=== PATIENT | female | born 1990 | race Caucasian/White ===

== ENCOUNTER 2016-10-21 06:10 | Inpatient (IN) | payer OTHER ==
[2016-10-21] MEDS ORDERED: CITRIC ACID/SODIUM CITRATE 30 ML UNIT-DOSE CUP PO ONE (07:01)
[2016-10-21] MEDS: ELECTROLYTE-148 SOLN 1,000 ML IV SCH (08:00)
[2016-10-21 08:09] VITALS: BMI 36.1
[2016-10-21] MEDS ORDERED: oxyCODONE HCL 5 MG TABLET PO PRN ×2 (08:17)
[2016-10-21] MEDS ORDERED: METHYLERGONOVINE MALEATE 0.2 MG/1 ML AMP IM PRN (08:17)
[2016-10-21] MEDS ORDERED: IBUPROFEN 800 MG/8 ML IJ IVPB PRN ×2 (08:17→09:21)
[2016-10-21] MEDS ORDERED: ONDANSETRON 4 MG/2 ML VIAL IVPB PRN (09:20)
[2016-10-21] MEDS ORDERED: morphine SULFATE/Preservative Free 0.5 MG/ML (1cc Syringe) EP ONE (09:20)
[2016-10-21] MEDS: OXYTOCIN 20 UNITS in 0.9% NS 1,000 ML IV SCH (10:15)
[2016-10-21] MEDS: FERROUS SO4 325 MG TABLET (FP) PO SCH ×2 (10:55→18:16)
[2016-10-21] MEDS ORDERED: TUBERCULIN PPD 5 TU/0.1ML SYRINGE (IN PATIENT USE ONLY) ID ONE (16:15)
--- NOTE | 2016-10-21 19:59 | OP ---
Operative Note - Note: Operative Date: 10/21/16 (dictation number [id number]) Pre-Operative Diagnosis: SIUP at 39 weeks, prior delivery, declines TOLAC Operation: repeat LTCS/ delivery Findings: normal b/l tubes and ovaries Post-Operative Diagnosis: Same as Pre-op Surgeon: Jamzín Smith Client Server Programmer: Yang Machado Anesthesiologist/PAPER MACHINE OPERATOR: Junior Johnson Anesthesia: Spinal Specimens Removed: placenta Estimated Blood Loss (mls): 700 Operative Report Dictated: Yes
--- NOTE | 2016-10-21 20:04 | HP ---
Past Medical History - Admission History of Present Illness: 25 y/o with SIUP at 39 weeks here for scheduled repeat section. Pt with h/o prior c section for arrest of dilation, pt declines TOLAC. only complicated by short time of concern for anxiety/ depression, pt did take Lexapro for a few weeks in the 2nd trimester. Hasn't taken since and mood has been stable. Pt reports +FM, no VB/LOf/Ctx. 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 History Source: Patient, Medical Record Limitations to Obtaining History: No Limitations - Past Medical History ...: 3 ...Para: 1 ...Term: 1 ...: 0 ...Spon : 0 ...Induced : 0 ...Multiple Gestation: 0 ... Weeks Gestation by Dates: 39.0 ...EDC by Sono: 10/28/16 Heme/Onc: Yes: Anemia Psych: Yes: Anxiety - Past Surgical History Past Surgical History: Yes: Hx Myomectomy: No Hx Transabdominal Cerclage: No - Smoking History Smoking history: Never smoked Have you smoked in the past 12 months: No - Alcohol/Substance Use Hx Alcohol Use: No History of Substance Use: reports: None - Social History Usual Living Arrangement: Yes: With Significant Other ADL: Independent History of Recent Travel: No Home Medications - Allergies Allergies/Adverse Reactions: Allergies Allergy/AdvReac Type Severity Reaction Status Date / Time No Known Allergies Allergy Verified 10/21/16 08:10 - Home Medications Home Medications: Ambulatory Orders Ibuprofen [Motrin -] 600 mg PO QID PRN #28 tablet 10/21/16 Oxycodone HCl/Acetaminophen [Percocet 5-325 mg Tablet -] 1 tab PO Q4H #30 tablet MDD 6 10/21/16 Vit No.130/Iron/FA [ Vitamins] 1 each PO DAILY 10/21/16 Review of Systems - Review of Systems Constitutional: reports: No Symptoms Eyes: reports: No Symptoms HENT: reports: No Symptoms Neck: reports: No Symptoms Cardiovascular: reports: No Symptoms Respiratory: reports: No Symptoms Gastrointestinal: reports: No Symptoms Genitourinary: reports: No Symptoms Breasts: reports: No Symptoms Reported Musculoskeletal: reports: No Symptoms Integumentary: reports: No Symptoms Neurological: reports: No Symptoms Endocrine: reports: No Symptoms Hematology/Lymphatic: reports: No Symptoms Psychiatric: reports: No Symptoms Physical Exam - Maternity Vital Signs: Vital Signs Temperature 99.2 F 10/21/16 17:46 Pulse Rate 93 H 10/21/16 17:46 Respiratory Rate 20 10/21/16 17:46 Blood Pressure 135/77 10/21/16 17:46 O2 Sat by Pulse Oximetry (%) 100 10/21/16 10:35 Constitutional: Yes: Well Nourished, No Distress, Calm Eyes: Yes: Conjunctiva Clear, EOM Intact HENT: Yes: Atraumatic, Normocephalic Neck: Yes: Supple, Trachea Midline Cardiovascular: Yes: Regular Rate and Rhythm Lungs: Clear to auscultation - Abdominal Exam/OB Number of Fetuses: Single Contractions: No Monitor Mode: External Category: I Accelerations: Uniform Decelerations: None - Vaginal Exam/OB Vaginal Bleediing: No Amniotic Membrane Status: Intact - Physical Exam Psychiatric: Yes: Alert, Oriented Hemorrhage Risk Assessment - Risk Factors Medium Risk Factors: Yes: Prior , uterine surgery,or multiple laparotomies High Risk Factors: Yes: None Risk Score: 1 Risk Level: Medium Risk Problem List - Problems (1) History of delivery Code(s): Z98.891 - HISTORY OF UTERINE SCAR FROM PREVIOUS SURGERY (2) Term Code(s): Z34.80 - ENCOUNTER FOR SUPRVSN OF NORMAL , UNSP TRIMESTER Assessment/Plan 25 y/o with SIUP at 39 weeks for scheduled repeat c section NPO SCDs IV Antibiotics preop nursing and anesthesia and nursery/nicu aware burkett catheter preop
[2016-10-22 08:16] LABS: BASOPHIL 0.1 % (0-2.0); EOSINOPHIL 0.2 % (0-4.5); MCH 24.6 pg (25.7-33.7); MCHC 32.8 g/dl (32.0-36.0); MEAN PLT VOLUME 8.7 fl (7.5-11.1); NEUTROPHILS 86.1 % (42.8-82.8); PLATELET COUNT 162 K/MM3 (134-434); RDW 14.8 % (11.6-15.6); WHITE BLOOD COUNT 10.4 K/mm3 (4.0-10.0)
[2016-10-22] MEDS: SIMETHICONE 80 MG TAB.CHEW (FP) PO PRN ×2 (08:17→16:00)
[2016-10-22] MEDS: IBUPROFEN 600 MG TABLET (FP) PO PRN ×3 (08:17→20:31)
[2016-10-22] MEDS ORDERED: BISACODYL 10 MG SUPP.RECT RC PRN (08:17)
[2016-10-22] MEDS: ACETAMINOPHEN 325 MG TABLET (FP) PO PRN ×3 (08:17→20:32)
[2016-10-22] MEDS: FERROUS SO4 325 MG TABLET (FP) PO SCH ×2 (08:21→17:46)
--- NOTE | 2016-10-22 09:40 | OP ---
DATE OF OPERATION: 10/21/2016 PREOPERATIVE DIAGNOSIS: Single intrauterine at 39 weeks gestation, prior section, does decline trial of labor after section. POSTOPERATIVE DIAGNOSIS: Single intrauterine at 39 weeks gestation, prior section, does decline trial of labor after section. PROCEDURE: Repeat low transverse section. SURGEON: Jazmín Smith DO AUTO DAMAGE ESTIMATOR: Divya Machado MD ESTIMATED BLOOD LOSS: 700 mL COMPLICATIONS: None. SPECIMENS REMOVED: Included placenta. COUNTS: Sponge, needle, and instrument count correct. ANESTHESIA: Spinal by Junior Johnson MD. BRIEF HISTORY AND DESCRIPTION OF PROCEDURE: Patient is a 25-year-old G3, P 1-0- 1-1 female with a single intrauterine at 39 weeks gestation. Patient had a prior history of section in the past and declined trial of labor after section and was scheduled to undergo a repeat section. The patient was admitted to [facility] on October 21, 2016, and consents for the procedure were signed. The patient was taken back to the operating room where she was given spinal anesthesia, and she was placed in the dorsal supine position on the table. A hard timeout was performed after she was prepped and draped in the usual sterile fashion. A Pfannenstiel skin incision was created in the skin with a scalpel and carried to the underlying layer of rectus fascia with the scalpel. The fascia was incised on either side of midline with the Bovie, and the fascial incision was carried in a superolateral direction with the Bovie. The fascia was tented upward and dissected off the underlying layer of rectus muscle with the Bovie. The musculature was laterally, and the peritoneum was entered sharply. The peritoneum was then carefully dissected to allow for adequate room for delivery. A bladder blade was then inserted after a bladder flap was created. A transverse incision in the lower uterine segment was created with a scalpel and carried in a superolateral direction bluntly. The was then delivered from the left occiput transverse position without difficulty, and the anterior and posterior shoulder delivered with ease along with the remainder of the . The umbilical cord was then clamped and cut, and the was taken over to the warmer to be assessed by the neonatology staff, where infant received scores of 8 and 9. The placenta was then delivered intact and manually extracted, and the uterus was then exteriorized from the abdomen, inspected and cleared of all amniotic membrane and debris with a dry lap sponge. The hysterotomy was reapproximated in a double-layer closure using first Vicryl suture in a running locked fashion, then using 0 Biosyn suture in a running locked fashion. Excellent hemostasis was achieved. Bilateral tubes and ovaries were noted to be within normal limits. Posterior cul-de-sac was suctioned. The uterus was placed back into the abdomen. Bilateral gutters were inspected and cleared of all debris. The hysterotomy was again inspected and noted to be hemostatic. The peritoneum was reapproximated using 2-0 chromic suture in a running fashion. The musculature was reapproximated in 2 interrupted sutures using a 2-0 chromic suture. The fascia was reapproximated using 1 Vicryl in a running fashion. The subcutaneous tissue was irrigated and reapproximated using 1 Vicryl in a running fashion, and the skin was reapproximated using 3-0 Vicryl in a subcuticular fashion. Steri- Strips were applied. All sponge, needle, and instrument counts were reported to be correct. The patient tolerated the procedure well, is recovering in stable condition in the PACU at the time of this dictation. JAZMÍN SMITH DO /[id number] MTDD
--- NOTE | 2016-10-22 09:52 | PN ---
Post Progress Note Type of Delivery: Repeat C/S Vital Signs: Vital Signs Temperature 99.1 F 10/22/16 09:47 Pulse Rate 107 H 10/22/16 09:47 Respiratory Rate 20 10/22/16 09:47 Blood Pressure 124/69 10/22/16 09:47 O2 Sat by Pulse Oximetry (%) 100 10/21/16 10:35 Breast Exam: Yes: Soft Uterus: Yes: Fundus Firm, Fundus below umbilicus Incision: Yes: Dressing dry and intact Abdomen/GI: Yes: Abdomen soft, Passing flatus, Tolerating PO. No: Tender Lochia: Yes: Rubra Lochia, amount: Small Extremities: Yes: Edema (+1 nonpitting edema in LE B/L) Perineum: Yes: Intact Activity: Ambulating - Labs Labs: CBC WBC 10.4 K/mm3 (4.0-10.0) H 10/22/16 07:45 RBC 3.42 M/mm3 (3.60-5.2) L 10/22/16 07:45 Hgb 8.4 GM/dL (10.7-15.3) L 10/22/16 07:45 Hct 25.6 % (32.4-45.2) L 10/22/16 07:45 MCV 75.0 fl (80-96) L 10/22/16 07:45 MCH 24.6 pg (25.7-33.7) L 10/22/16 07:45 MCHC 32.8 g/dl (32.0-36.0) 10/22/16 07:45 RDW 14.8 % (11.6-15.6) 10/22/16 07:45 Plt Count 162 K/MM3 (134-434) 10/22/16 07:45 MPV 8.7 fl (7.5-11.1) 10/22/16 07:45 Neutrophils % 86.1 % (42.8-82.8) H 10/22/16 07:45 Lymphocytes % 10.1 % (8-40) 10/22/16 07:45 Monocytes % 3.5 % (3.8-10.2) L 10/22/16 07:45 Eosinophils % 0.2 % (0-4.5) 10/22/16 07:45 Basophils % 0.1 % (0-2.0) 10/22/16 07:45 Problem List - Problems (1) History of delivery Code(s): Z98.891 - HISTORY OF UTERINE SCAR FROM PREVIOUS SURGERY (2) Term Code(s): Z34.80 - ENCOUNTER FOR SUPRVSN OF NORMAL , UNSP TRIMESTER Assessment/Plan 25 y/o POD#1 s/p repeat delivery - AFVSS - Hgb 8.4 post delivery, asymptomatic, continue Iron PO BID - regular diet, PO pain meds - encourage ambulation -
[2016-10-22] MEDS: ENOXAPARIN NA (PORCINE) 40 MG/0.4 ML DISP.SYRIN SQ SCH (10:51)
[2016-10-22] MEDS: OXYTOCIN 20 UNITS in 0.9% NS 1,000 ML IV SCH (10:52)
[2016-10-22] MEDS: ELECTROLYTE-148 SOLN 1,000 ML IV SCH (10:52)
--- NOTE | 2016-10-22 15:17 | PN ---
Progress Note (short form) - Note Progress Note: Anesthesia POD#1 S/P C- Section with spinal and Duramorph awake ,alert ,sitting in the chair. No N/V,no Itch. No weakness in the extremities. No complications to anesthesia seen. Estefani Verduzco MD.
[2016-10-22 22:26] LABS: URINE APPEARANCE CLEAR; URINE BILIRUBIN NEGATIVE (NEGATIVE); URINE BLOOD 3+ (NEGATIVE); URINE COLOR STRAW; URINE GLUCOSE (UA) NEGATIVE (NEGATIVE); URINE KETONE NEGATIVE (NEGATIVE); URINE LEUK ESTERASE NEGATIVE (NEGATIVE); URINE NITRITE NEGATIVE (NEGATIVE); URINE PROTEIN NEGATIVE (NEGATIVE); URINE UROBILINOGEN NEGATIVE mg/dL (0.2-1.0)
[2016-10-22 22:35] LABS: URINE MUCUS RARE; URINE RBC 10 /hpf (0-3); URINE WBC <1 /hpf (3-5)
[2016-10-23] MEDS: ACETAMINOPHEN 325 MG TABLET (FP) PO PRN ×3 (08:00→17:23)
[2016-10-23] MEDS: SIMETHICONE 80 MG TAB.CHEW (FP) PO PRN ×3 (08:00→17:22)
[2016-10-23] MEDS: FERROUS SO4 325 MG TABLET (FP) PO SCH ×2 (08:00→17:18)
[2016-10-23] MEDS: IBUPROFEN 600 MG TABLET (FP) PO PRN ×3 (08:01→17:23)
[2016-10-23] MEDS: ENOXAPARIN NA (PORCINE) 40 MG/0.4 ML DISP.SYRIN SQ SCH (10:24)
--- NOTE | 2016-10-23 10:59 | PN ---
Post Progress Note - Subjective Subjective: Patient seen/evaluated and doing well. Pain controlled, tolerating diet, ambulating, voiding, passing flatus. NO CP/SOB/F/C/CEBALLOS or any other complaints/ concerns. Type of Delivery: Repeat C/S Vital Signs: Vital Signs Temperature 98.3 F 10/23/16 08:32 Pulse Rate 95 H 10/23/16 08:32 Respiratory Rate 20 10/23/16 08:32 Blood Pressure 117/77 10/23/16 08:32 O2 Sat by Pulse Oximetry (%) 100 10/21/16 10:35 Breast Exam: Yes: Soft Uterus: Yes: Fundus Firm, Fundus below umbilicus Incision: Yes: Sutures intact Abdomen/GI: Yes: Abdomen soft, Passing flatus, Tolerating PO. No: Abdominal Distention, Tender Lochia: Yes: Rubra Lochia, amount: Small Extremities: Yes: Calves non-tender, Edema (+1 nonpitting edema in LE bilaterally) Perineum: Yes: Intact - Labs Labs: CBC WBC 10.4 K/mm3 (4.0-10.0) H 10/22/16 07:45 RBC 3.42 M/mm3 (3.60-5.2) L 10/22/16 07:45 Hgb 8.4 GM/dL (10.7-15.3) L 10/22/16 07:45 Hct 25.6 % (32.4-45.2) L 10/22/16 07:45 MCV 75.0 fl (80-96) L 10/22/16 07:45 MCH 24.6 pg (25.7-33.7) L 10/22/16 07:45 MCHC 32.8 g/dl (32.0-36.0) 10/22/16 07:45 RDW 14.8 % (11.6-15.6) 10/22/16 07:45 Plt Count 162 K/MM3 (134-434) 10/22/16 07:45 MPV 8.7 fl (7.5-11.1) 10/22/16 07:45 Neutrophils % 86.1 % (42.8-82.8) H 10/22/16 07:45 Lymphocytes % 10.1 % (8-40) 10/22/16 07:45 Monocytes % 3.5 % (3.8-10.2) L 10/22/16 07:45 Eosinophils % 0.2 % (0-4.5) 10/22/16 07:45 Basophils % 0.1 % (0-2.0) 10/22/16 07:45 Problem List - Problems (1) History of delivery Code(s): Z98.891 - HISTORY OF UTERINE SCAR FROM PREVIOUS SURGERY (2) Term Code(s): Z34.80 - ENCOUNTER FOR SUPRVSN OF NORMAL , UNSP TRIMESTER (3) delivery delivered Code(s): O82 - ENCOUNTER FOR DELIVERY WITHOUT INDICATION (4) Anemia Code(s): D64.9 - ANEMIA, UNSPECIFIED Assessment/Plan 25 y/o POD#2 s/p repeat delivery - AFVSS - Hgb 8.4 post op, pt asymptomatic, continue prenatals/PO Iron - regular diet, encourage ambulation - discharge home in a.m.
--- NOTE | 2016-10-23 11:01 | DS ---
Physical Exam-ASSISTANT PROFESSOR OF BIOLOGY Vital Signs: Vital Signs Temperature 98.3 F 10/23/16 08:32 Pulse Rate 95 H 10/23/16 08:32 Respiratory Rate 20 10/23/16 08:32 Blood Pressure 117/77 10/23/16 08:32 O2 Sat by Pulse Oximetry (%) 100 10/21/16 10:35 Labs: CBC, BMP 10/22/16 07:45 Delivery - Delivery Section: Repeat, Low Flap Transverse Type of Anesthesia: Spinal Episiotomy/Laceration: None EBL (cc): 700 Delivery, Single - Stages of Labor Date of Delivery: 10/21/16 Time of Delivery: 09:06 Time Placenta Delivered: 09:07 Placenta: Yes: Manual Removal - Condition of Electronic Equipment Set Up Operator/Cert Occupational Therapy Asst Present: Yes Name: Brendan Moore Gender: Female Weight: 8 lb 2 oz Position: Left, OA Total Hours ROM (Hrs/Mins): 2M - 1 Minute Total Score: 8 5 Minutes Total Score: 9 - Feeding Plan Initial Plan: Exclusive throughout hospitalization Discharge Summary Reason For Visit: SCHEDULED C/SECTION Current Active Problems Anemia (Acute) delivery delivered (Acute) History of delivery (Acute) Term (Acute) Procedures: Principal: Scheduled Repeat Delivery Hospital Course: Uncomplicated post recovery Condition: Good - Instructions Diet, Activity, Other Instructions: Physical activity Resume your normal everyday activity as tolerated but no heavy lifting or strenuous exercise until seen by your surgeon. You may walk unlimited amounts and climb stairs. You may resume driving the car when you feel safe and comfortable behind the wheel- usually 2 weeks. No sexual activity as instructed for 6 weels. Wound care If there are tapes on the skin leave them in place. They will peel off in the next 7 to 10 days. Do Not Peel them off. You may shower the day after surgery. If there are tapes present on the skin, you may shower over them. Diet There are no dietary restrictions. Eat healthy, high-fiber foods. Drink 6 to 8 glasses of liquid each day. This will assist in keeping your bowels regular. Pain management You may take Tylenol or Ibuprofen (for example, Motrin, Advil etc.) for mild pain. You may take any prescription medication as directed for severe pain. Call MD for any of the following: Severe pain not relieved by medication Fever of 101 or higher Excessive bleeding or drainage on dressing Inability to urinate Referrals: Jazmín Smith DO [Staff Physician] - 1 Week Disposition: HOME - Home Medications Comprehensive Discharge Medication List: Ambulatory Orders Ibuprofen [Motrin -] 600 mg PO QID PRN #28 tablet 10/21/16 Oxycodone HCl/Acetaminophen [Percocet 5-325 mg Tablet -] 1 tab PO Q4H #30 tablet MDD 6 10/21/16 Vit No.130/Iron/FA [ Vitamins] 1 each PO DAILY 10/21/16
[2016-10-24 00:29] VITALS: TEMP 98
[2016-10-24] MEDS: SIMETHICONE 80 MG TAB.CHEW (FP) PO PRN ×3 (00:44→11:33)
[2016-10-24] MEDS: ACETAMINOPHEN 325 MG TABLET (FP) PO PRN ×3 (00:44→11:33)
[2016-10-24] MEDS: IBUPROFEN 600 MG TABLET (FP) PO PRN ×3 (00:44→11:33)
[2016-10-24 08:06] LABS: BASOPHIL 0.3 % (0-2.0); EOSINOPHIL 2.8 % (0-4.5); MCH 24.8 pg (25.7-33.7); MCHC 32.8 g/dl (32.0-36.0); MEAN CELL VOLUME 75.7 fl (80-96); MEAN PLT VOLUME 8.7 fl (7.5-11.1); NEUTROPHILS 70.1 % (42.8-82.8); PLATELET COUNT 181 K/MM3 (134-434); RDW 14.9 % (11.6-15.6); WHITE BLOOD COUNT 7.2 K/mm3 (4.0-10.0)
[2016-10-24] MEDS: FERROUS SO4 325 MG TABLET (FP) PO SCH (09:10)
[2016-10-24] MEDS: ENOXAPARIN NA (PORCINE) 40 MG/0.4 ML DISP.SYRIN SQ SCH (09:10)
[2016-10-24 11:22] VITALS: BP 129/81; PULSE 87
--- NOTE | 2016-10-24 14:13 | PATH ---
Surgical Pathology Report Patient Name: JAYLIN MALIK [facility]. Rec. #: [id number] /Age/Gender: 1990 (Age: 25) / F Account: [id number] Location: [facility] OBS/BEATER ENGINEER Taken: 10/21/2016 Received: 10/22/2016 Reported: 10/24/2016 Physicians: Jazmín Smith M.D. Specimen(s) Received PLACENTA Clinical History , 1 SAB, previous x1 Final Diagnosis PLACENTA, DELIVERY: FOCALLY DISRUPTED THIRD TRIMESTER PLACENTA WITH THREE VESSEL UMBILICAL CORD AND UNREMARKABLE PLACENTAL MEMBRANES. Electronically Signed Hamilton Hamilton M.D. Gross Description The specimen is received fresh labeled placenta and is a 420 gram, 19.5 x 17.5 x 2.2 cm. placenta with attached membranes and umbilical cord. The attached membranes are sierra, translucent with focal opacities and insert marginally. The umbilical cord measures 35 cm. in length and averages 1.2 cm. in diameter. The cord inserts eccentrically, 3 cm. to the nearest margin. No true knots or strictures are identified. Cut surface of the umbilical cord reveals 3 vessels. The surface is lazo-blue with minimal fibrin deposition and appropriate caliber vessels. The maternal surface is red-brown with focal defects. Sectioning reveals red-brown, spongy parenchyma. No lesions are identified. Icebox Man sections are submitted in three cassettes as follows: 1- membrane rolls and umbilical cord; 2-3- full thickness sections of placenta. /10/23/2016 [facility]10/23/2016
== END 2016-10-24 13:15 | disposition home or self-care (01) | DRG 540 ==
LOC: JLDR 06:10 → J3W 11:00
PROVIDERS: ADMIT Obstetrics & Gynecology; ATTEND Obstetrics & Gynecology
PROC: 10D00Z1 Extraction of Products of Conception, Low, Open Approach (ICD-10-PCS; principal; 2016-10-21)
DX: O34.211 Maternal care for low transverse scar from previous cesarean delivery (principal); O99.344 Other mental disorders complicating childbirth; F41.9 Anxiety disorder, unspecified; Z3A.39 39 weeks gestation of pregnancy; Z37.0 Single live birth
CPT/HCPCS: 36415; 81003; 81015; 85025; 87086; 88307-TC